=== PATIENT | male | born 1965 | race Caucasian/White ===

== ENCOUNTER 2024-05-29 14:21 | Outpatient (OUT) | payer OTHER, SELFPAY ==
--- NOTE | 2024-05-29 14:32 | XR_ITS ---
The [place] [id number] Patient Name: MIL PARR MRN: [id number] date: 1965 Sex: M Assigned Patient Location: SURGOUT Current Patient Location: [facility] Accession/Order Number: [id number] Exam Date: 05/29/2024 19:09 Report Date: 05/29/2024 19:09 At the request of: YOKO SALAMANCA MD Procedure: XR chest 2V Plain film chest Single view HISTORY: Presurgical testing COMPARISON: None FINDINGS: SUPPORT DEVICES: None POSTSURGICAL CHANGES: Spinal fixation hardware HEART: Within normal limits PULMONARY SHAYNA: Within normal limits MEDIASTINUM: Unremarkable LUNGS AND PLEURA: No acute lung process, pleural effusion or pneumothorax identified. BONY STRUCTURES: Intact ADDITIONAL FINDINGS None XR/XR chest 2V IMPRESSION: No acute process. Impression dictated by: Sushil Nowak M.D.05/29/2024 7:09 PM Dictation Location: [place] [address] Electronically authenticated by: [id number] Y Date: 05/29/2024 19:09
--- NOTE | 2024-05-29 14:32 | ECG_ITS ---
The [facility] Test Date: 2024-05-29 Pat Name: MIL PARR Department: Room: - Gender: Male [employer] Supervisor: : 1965 Requested By: YOKO SALAMANCA Order Number: [id number] Reading MD: VINCE HOLCOMB M.D. Measurements Intervals [place] Rate: 54 P: 64 VT: 220 QRS: -33 QRSD: 110 T: 47 QT: 412 QTc: 393 Interpretive Statements SINUS BRADYCARDIA WITH FIRST DEGREE AV BLOCK MARKED LEFT AXIS DEVIATION [QRS AXIS < -30] INCOMPLETE RIGHT BUNDLE BRANCH BLOCK [90+ ms QRS DURATION, TERMINAL R IN V1/V2, 40+ ms S IN I/aVL/V4/V5/V6] No previous ECG available for comparison Electronically Signed On 05-30-2024 8:56:12 EDT by VINCE HOLCOMB M.D.
[2024-05-29 16:29] LABS: Anion Gap 10.4; BUN Creatinine Ratio 17.2; Calcium 9.2 mg/dL (8.5-10.1); Carbon Dioxide 28.8 mmol/L (21.0-32.0); Chloride 105 mmol/L (98-107); Estimated GFR (African America >60 (>=60 mL/min/1.73m^2); Estimated GFR (Non-African Ame >60 (>=60 mL/min/1.73m^2); Glucose 92 mg/dL (74-106); Potassium 4.2 mmol/L (3.5-5.1); Sodium 140 mmol/L (136-145)
[2024-05-29 16:32] LABS: Basophils Absolute Auto 0.1 10^3/uL (0.0-0.1); Basophils Percent Auto 0.8 % (0.2-2.0); Eosinophils Percent Auto 0.3 % (0.9-7.0); Hematocrit 30.5 % (42.0-54.0); Immature Granulocytes Abs Auto 0.02 10^3/uL (0.00-0.03); Immature Granulocytes Pct Auto 0.3 % (0.0-0.5); Lymphocytes Absolute Auto 1.9 10^3/uL (1.2-3.8); Lymphocytes Percent Auto 29.6 % (20.5-60.0); Mean Corpuscular HGB Conc 32.8 g/dL (29.9-35.2); Mean Corpuscular Hemoglobin 33.6 pg (25.9-34.0); Mean Corpuscular Volume 102.3 fL (80.0-94.0); Mean Platelet Volume 12.4 fL (9.5-13.5); Monocytes Absolute Auto 0.5 10^3/uL (0.3-0.8); Monocytes Percent Auto 8.3 % (1.7-12.0); Neutrophils Absolute Auto 3.9 10^3/uL (1.4-6.5); Neutrophils Percent Auto 60.7 % (43.0-75.0); Platelet Count 313 10^3/uL (150-450); Red Blood Count 2.98 10^6/uL (4.70-6.10); Red Cell Distribution Width 24.6 % (11.0-15.0); White Blood Count 6.4 10^3/uL (4.0-11.0)
--- NOTE | 2024-05-29 16:37 | PM.PRESUREVA ---
History of Present Illness History of Present Illness Chief complaint: bph with obs Narrative: Mr. Roosevelt Yung is a pleasant 59-year-old male who presents to presurgical testing with complaints of incomplete bladder emptying and weak urine stream. He has been evaluated by Dr. Guerra and diagnosed with BPH with obstruction. He is scheduled for cystoscopy and transurethral resection of the prostate on 06/04/2024 Review of Systems ROS Narrative REVIEW OF SYSTEMS: Negative except as stated in HPI, ten or more systems reviewed. Constitutional: No fever, chills, weakness ENT: No sore throat or epistaxis Cardiovascular: No edema, chest pain, palpitations, or activity intolerance Respiratory: Intermittent complaints of shortness of breath with exertion, denies cough, or wheezing Musculoskeletal: Complains of low back pain and denies any joint swelling Gastrointestinal: No abdominal pain, constipation, diarrhea, or vomiting Genitourinary: Reports frequency in urination and weak urine stream. He denies dysuria or hematuria Neurological: No numbness, tingling, weakness, or headache Psychiatric: No mood changes PFSH PFS Medical History (Updated 05/29/24 @ 16:19 by Brigid Duncan) Shingles ?B02.9 - Zoster without complications (ICD-10) Sleep apnea ?G47.30 - Sleep apnea, unspecified (ICD-10) Neuropathy ?G62.9 - Polyneuropathy, unspecified (ICD-10) Seasonal allergies ?J30.2 - Other seasonal allergic rhinitis (ICD-10) GERD (gastroesophageal reflux disease) ?K21.9 - Gastro-esophageal reflux disease without esophagitis (ICD-10) Pulmonary embolism ?I26.99 - Other pulmonary embolism without acute cor pulmonale (ICD-10) Hypothyroid ?E03.9 - Hypothyroidism, unspecified (ICD-10) Type 2 diabetes mellitus ?E11.9 - Type 2 diabetes mellitus without complications (ICD-10) Seasonal affective disorder ?F33.8 - Other recurrent depressive disorders (ICD-10) Rectal mass ?K62.89 - Other specified diseases of anus and rectum (ICD-10) PTSD (post-traumatic stress disorder) ?F43.10 - Post-traumatic stress disorder, unspecified (ICD-10) MARGARET (obstructive sleep apnea) ?G47.33 - Obstructive sleep apnea (adult) (pediatric) (ICD-10) OCD (obsessive compulsive disorder) ?F42.9 - Obsessive-compulsive disorder, unspecified (ICD-10) Medical marijuana use ?Z79.899 - Other [place] [facility] (current) drug therapy (ICD-10) Major depressive disorder ?F32.9 - Major depressive disorder, single episode, unspecified (ICD-10) Lumbar radiculopathy ?M54.16 - Radiculopathy, lumbar region (ICD-10) Incomplete bladder emptying ?R33.9 - Retention of urine, unspecified (ICD-10) Hyperlipidemia, mixed ?E78.2 - Mixed hyperlipidemia (ICD-10) High risk medication use ?Z79.899 - Other [place] [facility] [place] (current) drug therapy (ICD-10) Hemorrhoid ?K64.9 - Unspecified hemorrhoids (ICD-10) Generalized anxiety disorder ?F41.1 - Generalized anxiety disorder (ICD-10) Family history of colonic polyps ?Z83.719 - Family history of colon polyps, unspecified (ICD-10) Degenerative disc disease Chronic sinus complaints ?R09.89 - Other specified symptoms and signs involving the circulatory and respiratory systems (ICD-10) Celiac disease ?K90.0 - Celiac disease (ICD-10) Adult BMI 28.0-28.9 kg/sq m ?Z68.28 - Body mass index [BMI] 28.0-28.9, adult (ICD-10) Bipolar disorder ?F31.9 - Bipolar disorder, unspecified (ICD-10) Asthma ?J45.909 - Unspecified asthma, uncomplicated (ICD-10) Surgical History (Updated 05/26/24 @ 13:57 by Brigid Duncan) History of cystoscopy ?Z98.890 - Other specified postprocedural states (ICD-10) Hx of colonoscopy ?Z98.890 - Other specified postprocedural states (ICD-10) History of selective injection of anesthetic agent around lumbar nerve root ?Z98.890 - Other specified postprocedural states (ICD-10) H/O radiofrequency ablation (RFA) of nerve of lumbar spine ?Z98.890 - Other specified postprocedural states (ICD-10) History of lumbar fusion ?Z98.1 - Arthrodesis status (ICD-10) Family History (Updated 05/29/24 @ 15:39 by Brigid Duncan) Other Family history of Alzheimer's disease Family history of COPD (chronic obstructive pulmonary disease) Family history of coronary artery disease Family history of diabetes mellitus Family history of emphysema Family history of heart disease Family history of hypertension Family history of lung cancer Family history of myocardial infarction Family history of prostate cancer Family history of stroke Social History (Updated 05/29/24 @ 15:35 by Brigid Duncan) Within the past year, how often did you have a drink containing alcohol: never Score interpretation: A score less than 4 is consistent with normal alcohol consumption. Smoking status: Former smoker Non-prescribed substance use: cannabis (any form) Previous occupational history: disabled Highest level of school completed/degree received: Master's degree Meds Home Medications and Allergies Home Medications ?Medication ?Instructions ?Recorded ?Confirmed ?Type chlorhexidine gluconate 0.12 % 15 ml mucous membrane QDAY 05/26/24 05/29/24 History mouthwash (Peridex) clonazepam 1 mg tablet (Klonopin) 1 mg PO TID 05/26/24 05/29/24 History doxycycline hyclate 100 mg capsule 100 mg PO BID 05/26/24 05/29/24 History duloxetine 60 mg capsule,delayed 60 mg PO BEDTIME 05/26/24 05/29/24 History release (Cymbalta) epinephrine 0.3 mg/0.3 mL 0.3 mg IM Q10M PRN anaphylaxis to 05/26/24 05/29/24 History injection, auto-injector (EpiPen phenol/ thimerosol 2-Hardik) gabapentin 100 mg capsule 100 mg PO BID 05/26/24 05/29/24 History hydrocortisone-pramoxine 2.5 %-1 % 1 applic AR TID PRN rectal 05/26/24 05/29/24 History rectal cream discomfort levalbuterol tartrate 45 2 inh inhalation Q4H PRN shortness 05/26/24 05/29/24 History mcg/actuation aerosol inhaler of breath or wheezing (Xopenex HFA) lumateperone 21 mg capsule 21 mg PO BEDTIME 05/26/24 05/29/24 History (Caplyta) medical marijuana PRN pain 05/26/24 History methocarbamol 750 mg tablet 750 mg PO Q8H PRN muscle spasm 05/26/24 05/29/24 History montelukast 10 mg tablet 10 mg PO DAILY 05/26/24 05/29/24 History (Singulair) omalizumab 150 mg/mL subcutaneous 150 mg subcut .every 2 weeks 05/26/24 05/29/24 History auto-injector (Xolair) semaglutide 3 mg tablet (Rybelsus) 3 mg PO DAILY 05/26/24 05/29/24 History tamsulosin 0.4 mg capsule (Flomax) 0.4 mg PO DAILY 05/26/24 05/29/24 History budesonide-formoterol HFA 160 2 inh inhalation TID 05/29/24 05/29/24 History mcg-4.5 mcg/actuation aerosol inhaler (Symbicort) cetirizine 10 mg tablet (24Hour 10 mg PO DAILY PRN allergy symptoms 05/29/24 05/29/24 History Allergy) diclofenac epolamine 1.3 % 1 patch transdermal Q12H 05/29/24 05/29/24 History transdermal 12 hour patch glucosamine-chondroitin 250 mg-200 1 tab PO DAILY 05/29/24 05/29/24 History mg tablet olopatadine 0.6 % nasal spray 2 spray intranasal BID PRN 05/29/24 05/29/24 History seasonal allergies tiotropium bromide 2.5 1 inh inhalation DAILY 05/29/24 05/29/24 History mcg/actuation mist for inhalation (Spiriva Respimat) triamterene 37.5 1 cap PO DAILY 05/29/24 05/29/24 History mg-hydrochlorothiazide 25 mg capsule turmeric 400 mg capsule 400 mg PO DAILY 05/29/24 05/29/24 History Allergies Allergy/AdvReac Type Severity Reaction Status Date / Time thimerosal Allergy Severe Anaphylaxis Verified 05/29/24 14:55 adhesive tape Allergy Mild Rash Verified 05/29/24 14:55 phenol AdvReac Severe Anaphylaxis Verified 05/29/24 14:55 amoxicillin AdvReac Mild Diarrhea Verified 05/29/24 14:55 flu immunization Allergy Severe Anaphylaxis Uncoded 05/29/24 14:55 Exam Narrative Exam Narrative: Nurses note and vital signs reviewed and patient is not hypoxic. General: The patient appears well and in no apparent distress. Patient is resting comfortably on cart. Skin: Warm, dry, no pallor noted. There is no rash noted. Head: Normocephalic, atraumatic Eye: Normal conjunctiva, no drainage, EOMI. PERRL Ears, Nose, Mouth, and Throat: oral mucosa is moist. Nares patent. Mouth without vesicles. Ear canals patent. Tm's without Erythema Cardiovascular: Regular Rate and Rhythm Respiratory: Patient is in no distress, no accessory muscle use, lungs are clear to auscultation, no wheezing, rales or rhonchi Back: non-tender, no CVA tenderness bilaterally to percussion. GI: Normal bowel sounds, no tenderness to palpation, no masses appreciated. No rebound, guarding, or rigidity noted. Musculoskeletal: The patient has no evidence of calf tenderness, no pitting edema, symmetrical pulses noted bilaterally Neurological: A&O x4, normal speech Psychiatric: Cooperative Assessment and Plan Assessment and Plan (1) BPH with obstruction/lower urinary tract symptoms: Plan Patient with diagnosis of benign prostatic hypertrophy with obstruction is scheduled for cystoscopy and transurethral resection of the prostate with Dr. Guerra on 06/04/2024
[2024-05-29 16:51] LABS: INR 1.05; Partial Thromboplastin Time 28.7 sec (22.3-36.2); Prothrombin Time 11.1 sec (9.0-11.6)
== END 2024-05-29 14:22 | disposition home or self-care (01) ==
PROVIDERS: PCP Family Medicine; Visit Provider Urology
DX: Z01.810 Encounter for preprocedural cardiovascular examination (principal); Z01.812 Encounter for preprocedural laboratory examination; Z01.818 Encounter for other preprocedural examination; N40.1 Benign prostatic hyperplasia with lower urinary tract symptoms
CPT/HCPCS: 71046; 80048; 85025; 85610; 85730; 93005; G0463

== ENCOUNTER 2024-06-04 11:07 | Day surgery (SDC) | payer OTHER, SELFPAY ==
[2024-05-29 15:35] VITALS: BP 141/73; PULSE 62; TEMP 36.5; O2SAT 99; BMI 29.6
[2024-06-04] VITALS (17 sets, daily range): BP systolic 141–164; BP diastolic 66–97; PULSE 66–99; TEMP 36–36.8; O2SAT 92–100; BMI 29.6
[2024-06-04 11:42] LABS: Glucometer 114 mg/dL (74-106)
[2024-06-04] MEDS: LACTATED RINGER'S SOLUTION 1,000 ML 50 ML IV ×2 (12:11→15:00)
[2024-06-04] MEDS: D5W IV ×2 (12:56→14:07)
[2024-06-04] MEDS: LEVOFLOXACIN 250 MG/50 ML IV ×2 (12:56→14:07)
--- NOTE | 2024-06-04 15:53 | P.URON_ITS ---
Urology Surgery Operative Note Operative Note Procedure Date: 06/04/24 Time Out Performed: yes Pre-op Diagnosis: BPH with LUTS refractory to medications Post-op Diagnosis: same as pre-op Procedures performed: 1. Cystoscopy. 2. Transurethral resection of the prostate. Anesthesia: GETA Primary Surgeon: Dar Guerra Complications: None Estimated blood loss (mL): 10 Findings: 1. Extremely high median lobe. 2. Obstructing lateral lobes. Specimens: Stay chips. Drains: 22 Turkish three-way coud? Diaz in the bladder taped to traction and CBI Indications for Procedures: This gentleman has significant bladder outlet obstructive symptoms in the form of intermittency, weak stream, incomplete emptying and recurrent urinary infections. Endoscopically, he was severely obstructed with an extremely high median lobe and obstructing lateral lobes. His bladder had diffuse inflammatory debris. He is strongly desirous for TURP. He has signed an informed consent after risks were explained. Some of these risks include bleeding, infection, anesthesia, retrograde ejaculation, urinary incontinence both temporary and permanent, erectile dysfunction and possible need for further operations to name a few. Detailed description of Procedure: The patient was brought to the operating room and placed on the operating room table in the supine position. SCDs were placed on the lower extremities and turned on and functioning during the entire case. Timeout was done by all parties in the room. We all agreed upon the patient's identification and the planned procedures for this patient. Genn. anesthesia was then administered. The patient was then repositioned into the modified dorsal lithotomy position. All pressure points were satisfactorily padded. Genitalia were sterilely prepped and draped in usual fashion. I started by passing a 26 Turkish Olympus resectoscope with a standard bipolar loop electrode per urethra and into the bladder. It was actually difficult to get the scope up and over his extremely elevated median lobe. I identified the ureteral orifices and marked them with a loop electrode. I started on the median lobe and uniformly resected this down to the bladder neck level. I then resected posteriorly from the bladder neck to the Veru level. The right lobe and left lateral lobes were resected similarly as was the anterior tissue. The bladder neck was opened up at the 5 and 7:00 positions. The resection bed was coagulated with the vaporization loop electrode. The [facility] evacuator was used to get all the chips out of the bladder and these were sent for permanent sections. Upon completion with the scope at the apex the prostatic urethra and bladder neck were now wide open. There was no bleeding. There were no chips remaining in the bladder. The scope was then removed. I then placed a 22 Turkish three-way coud? Diaz catheter in the bladder. We irrigated it with a Giancarlo syringe to verify correct placement. 30 cc of fluid was placed in the balloon. It was taped to traction and CBI was started. It irrigated to a clear color. The anesthetic was then reversed. He was then transferred to a [facility] bed and wheeled to PACU in stable condition. Urinary Catheter Management Urinary Catheter Management Coude: Cath placed during this visit: no
[2024-06-04] MEDS: HYDROMORPHONE HCL 0.5 MG/0.5 ML SYRINGE IV ×2 (15:57→16:06)
[2024-06-04] MEDS: HYDROCODONE/ACET 5-325 MG TABLET 1 TAB PO ×3 (16:10→23:28)
[2024-06-04] MEDS: SOLIFENACIN SUCCINATE 10 MG TABLET PO (16:10)
[2024-06-04] MEDS: 0.9 % SODIUM CHLORIDE 1,000 ML 80 ML IV (17:28)
[2024-06-04] MEDS: SODIUM CHLORIDE IRRIG SOLUTION 3,000 ML 3000 ML IRR ×4 (17:28→23:26)
[2024-06-04] MEDS: CLONAZEPAM 0.5 MG TABLET 1 MG PO ×2 (18:33→22:18)
[2024-06-04] MEDS: BUDESONIDE FORMOTEROL IH (20:22)
[2024-06-04] MEDS: [UNRECOGNIZED DRUG - OTHER] IH (20:22)
[2024-06-04] MEDS: MONTELUKAST SODIUM 10 MG TABLET PO (20:29)
[2024-06-04] MEDS: DULOXETINE HCL 60 MG CAPSULE.DR PO (20:29)
[2024-06-04] MEDS: [UNRECOGNIZED DRUG - REMARK] 2 EACH NS (20:30)
[2024-06-04] MEDS: CETIRIZINE HCL 10 MG TABLET PO (20:31)
[2024-06-04] MEDS: GABAPENTIN 100 MG CAPSULE PO (21:04)
[2024-06-04] MEDS: LEVOFLOXACIN 500 MG/100 ML-D5W PREMIX 100 MG IV (22:18)
[2024-06-04] MEDS: LUMATEPERONE 21 EACH PO (23:22)
[2024-06-05] VITALS: BP 153/72; PULSE 63; TEMP 36.6; O2SAT 92
[2024-06-05 03:26] VITALS: BP 134/80; PULSE 59; TEMP 36.1; O2SAT 96
[2024-06-05 08:00] VITALS: PULSE 73
[2024-06-05 08:04] VITALS: BP 145/78; PULSE 73; TEMP 36.6; O2SAT 97
[2024-06-05] MEDS: SOLIFENACIN SUCCINATE 10 MG TABLET PO (09:16)
[2024-06-05] MEDS: CLONAZEPAM 0.5 MG TABLET 1 MG PO (09:17)
[2024-06-05] MEDS: TRIAMTERENE PO (09:20)
[2024-06-05] MEDS: HCTZ PO (09:20)
[2024-06-05] MEDS: TIOTROPIUM BROMIDE IH (09:23)
[2024-06-05] MEDS: ACTUATION MIST IH (09:23)
[2024-06-05] MEDS: BUDESONIDE FORMOTEROL IH (09:27)
[2024-06-05] MEDS: [UNRECOGNIZED DRUG - OTHER] IH (09:27)
== END 2024-06-05 10:08 | disposition home or self-care (01) ==
LOC: SURGOUT 15:45 → MS 16:41
PROVIDERS: PCP Family Medicine; Visit Provider Urology
PROC: (CPT 914; principal; 2024-06-04 12:40)
DX: N40.1 Benign prostatic hyperplasia with lower urinary tract symptoms (principal); J45.909 Unspecified asthma, uncomplicated; K90.0 Celiac disease; E03.9 Hypothyroidism, unspecified; E78.5 Hyperlipidemia, unspecified; I10 Essential (primary) hypertension; E11.9 Type 2 diabetes mellitus without complications; R39.14 Feeling of incomplete bladder emptying; R39.12 Poor urinary stream; Z79.85 Long-term (current) use of injectable non-insulin antidiabetic drugs; G47.33 Obstructive sleep apnea (adult) (pediatric); Z87.01 Personal history of pneumonia (recurrent); Z86.718 Personal history of other venous thrombosis and embolism
CPT/HCPCS: 52601; 36415; 82948; 88305; 94640; J0131; J1100; J1171; J1956; J2250; J2405; J2704; J3010